=== PATIENT | female | born 1995 | race African-American/Black ===

== ENCOUNTER 2016-07-07 23:29 | Emergency (ER) | payer MEDICAID ==
[~2016-07-07] VITALS: Ht 165.1 cm; Wt 61.0 kg
[~2016-07-07 23:29] MED LIST: IBUP-232 PO; ORTH0.35 PO; PREN1CAP17; SENN1TAB PO
[2016-07-07 23:35] VITALS: BP 138/89; PULSE 85; RESP 16; TEMP 98; O2SAT 98
== END 2016-07-08 02:24 | disposition left against medical advice (07) ==
LOC: NED 23:29
DX: R68.89 Other general symptoms and signs (principal)
CPT/HCPCS: 99281

== ENCOUNTER 2016-07-10 21:56 | Emergency (ER) | payer MEDICAID ==
[~2016-07-10] VITALS: Ht 165.1 cm; Wt 62.0 kg
[2016-07-10 21:58] VITALS: BP 127/95; PULSE 81; RESP 16; TEMP 98; O2SAT 97
--- NOTE | 2016-07-10 23:18 | PD ---
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 Denies any fever, chest pain, sob, n/v , abdominal pain, dysuria, hematuria or vaginal bleeding. Pt states she use left over metronidazole 1 time 3 days ago. PFSH Past Medical History Anemia: Yes Bipolar Disorder: Yes Depression: Yes Developmental Delay: No Diminished Hearing: No Immunizations Current: Yes ?: Not LMP: 06/16/16 : 3 Para: 1 Miscarriage: 1 Past Surgical History Section: Yes (x1) Social History Alcohol Use: No Tobacco Use: No Substance Use: No Allergies-Medications (Allergen,Severity, Reaction): Coded Allergies: Mushroom (Verified Allergy, Severe, ANAPHYLAXIS, 07/10/16) Shrimp (Verified Allergy, Severe, ANAPHYLAXIS, 07/10/16) Uncoded Allergies: COCKTAIL SAUCE (Allergy, Severe, ANAPHYLAXIS, 03/30/16) Reported Meds & Prescriptions Reported Meds & Active Scripts Active Ortho Micronor-35 (Norethindrone) 0.35 Mg Tab 1 Tab PO DAILY Senna Plus 8.6-50 mg (Sennosides-Docusate Sodium) 1 Tab Tab 2 Tab PO Q12H PRN Ibuprofen 600 Mg Tab 600 Mg PO Q6H PRN Reported Prenate Pixie 10-0.6-0.4-200 mg ( W/O A W/ Fe Asparto G) 1 Cap Cap Review of Systems Except as stated in HPI: all other systems reviewed are Neg Physical Exam Narrative GENERAL: 20yo F not in distress. SKIN: Warm and dry. HEAD: Atraumatic. Normocephalic. CARDIOVASCULAR: Regular rate and rhythm. No murmur appreciated. RESPIRATORY: No accessory muscle use. Clear to auscultation. Breath sounds equal bilaterally. GASTROINTESTINAL: Abdomen soft, non-tender, nondistended. No rebound tenderness or guarding. PELVIC: +White thick vaginal discharge. No blood. No CMT or adnexal tenderness bilaterally. MUSCULOSKELETAL: No obvious deformities. No clubbing. No cyanosis. No edema. NEUROLOGICAL: Awake and alert. No obvious cranial nerve deficits. Motor grossly within normal limits. Normal speech. PSYCHIATRIC: Appropriate mood and affect; insight and judgment normal. Data Data Last Documented VS Vital Signs Date Time Temp Pulse Resp B/P Pulse Ox O2 Delivery O2 Flow Rate FiO2 07/10/16 23:06 18 07/10/16 21:58 98.0 81 127/95 97 Room Air Orders Gc And Chlamydia Pcr (07/10/16 23:15) Wet Prep Profile (07/10/16 23:15) Ed Urine Pregnancytest Poc (07/10/16 23:15) Labs Laboratory Tests Test 07/10/16 23:30 Clue Cells (Wet Prep) NONE SEEN Vaginal Trichomonas (Wet Prep) NONE SEEN Vaginal Yeast (Wet Prep) PRESENT MDM Medical Decision Making Medical Screen Exam Complete: Yes Emergency Medical Condition: Yes Differential Diagnosis Vaginal candidiasis vs. bacterial vaginosis vs. trichomoniasis vs. GC/chlamydia Narrative Course 20yo F with white vaginal discharge and itching in vagina for 3 days. Pt's pelvic exam is consistent with candidiasis. Wet prep showed vaginal yeast present. No clue cells or trichomonas. Pt has no abdominal pain and no urinary complaints. Urine negative. Will treat with fluconazole 150mg PO x1 here for uncomplicated vulvovaginal candidiasis. Return precautions given. Diagnosis Primary Impression: Vulvovaginal candidiasis Patient Instructions: General Instructions Departure Forms: Tests/Procedures Additional Instructions: Please follow up with your OBGYN in 3-7 days. Return to the ED if symptoms worsen. Med/Other Pt SpecificInfo: No Change to Meds Disposition: 01 DISCHARGE HOME Condition: Stable Lizz Sullivan Jul 10, 2016 23:18
[2016-07-11] MEDS ORDERED: FLUCONAZOLE 100 MG TAB PO ONE (00:30)
[2016-07-11 01:15] LABS: CHLAMYDIA PCR NOT DETECTED (NOT DETECT); NEISSERIA PCR NOT DETECTED (NOT DETECT)
== END 2016-07-11 00:47 | disposition home or self-care (01) ==
LOC: NEPA 21:56
DX: B37.3 Candidiasis of vulva and vagina (principal); Z86.2 Personal history of diseases of the blood and blood-forming organs and certain disorders involving the immune mechanism; Z86.59 Personal history of other mental and behavioral disorders
CPT/HCPCS: 84703; 87210; 87491; 87591; 99283

== ENCOUNTER 2017-03-12 10:01 | Emergency (ER) | payer MEDICAID, OTHER ==
[~2017-03-12] VITALS: Ht 165.1 cm; Wt 57.0 kg
[~2017-03-12 10:01] MED LIST changes: -IBUP-232 PO; -ORTH0.35 PO; +PENI500T PO; -SENN1TAB PO; +TRAM50TA PO
[2017-03-12 10:03] VITALS: BP 126/90; PULSE 77; RESP 12; TEMP 98.2; O2SAT 99
--- NOTE | 2017-03-12 11:15 | PD ---
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 Said normally she has 5 days of menstrual period but this month it is about 10 days. Denies any fever, chest pain, sob, n/v, abdominal pain, vaginal discharge, focal weakness or numbness. PFSH Past Medical History Anemia: Yes Bipolar Disorder: Yes Depression: Yes Developmental Delay: No Diminished Hearing: No Immunizations Current: Yes ?: Not LMP: 02/22/17 : 3 Para: 2 Miscarriage: 1 Past Surgical History Section: Yes Social History Alcohol Use: No Tobacco Use: No Substance Use: Yes (MJ) Allergies-Medications (Allergen,Severity, Reaction): Coded Allergies: mushroom (Unverified Allergy, Severe, ANAPHYLAXIS, 03/12/17) shrimp (Unverified Allergy, Severe, ANAPHYLAXIS, 03/12/17) Uncoded Allergies: COCKTAIL SAUCE (Allergy, Severe, ANAPHYLAXIS, 03/30/16) Reported Meds & Prescriptions Reported Meds & Active Scripts Active Tramadol (Tramadol HCl) 50 Mg Tab 50 Mg PO Q6H PRN Penicillin V Potassium 500 Mg Tab 500 Mg PO Q6H 7 Days Reported Prenate Pixie 10-0.6-0.4-200 mg ( W/O A W/ Fe Asparto G) 1 Cap Cap Review of Systems Except as stated in HPI: all other systems reviewed are Neg Physical Exam Narrative GENERAL: 21yo F not in distress. SKIN: Focused skin assessment warm/dry. HEAD: Atraumatic. Normocephalic. CARDIOVASCULAR: Regular rate and rhythm. No murmur appreciated. RESPIRATORY: No accessory muscle use. Clear to auscultation. Breath sounds equal bilaterally. GASTROINTESTINAL: Abdomen soft, non-tender, nondistended. PELVIC: Small amount of blood. Mucous. No CMT or adnexal tenderness bilaterally. MUSCULOSKELETAL: No obvious deformities. No clubbing. No cyanosis. No edema. NEUROLOGICAL: Awake and alert. No obvious cranial nerve deficits. Motor grossly within normal limits. Normal speech. PSYCHIATRIC: Appropriate mood and affect; insight and judgment normal. Data Data Last Documented VS Vital Signs Date Time Temp Pulse Resp B/P (MAP) Pulse Ox O2 Delivery O2 Flow Rate FiO2 03/12/17 13:29 03/12/17 11:16 18 03/12/17 10:03 98.2 77 99 Orders Orders Complete Blood Count With Diff (03/12/17 11:11) Ed Urine Pregnancytest Poc (03/12/17 13:16) Ed Discharge Order (03/12/17 13:20) Labs Laboratory Tests Test 03/12/17 11:33 White Blood Count 5.8 TH/MM3 Red Blood Count 4.13 MIL/MM3 Hemoglobin 12.6 GM/DL Hematocrit 36.3 % Mean Corpuscular Volume 87.8 FL Mean Corpuscular Hemoglobin 30.5 PG Mean Corpuscular Hemoglobin Concent 34.7 % Red Cell Distribution Width 14.1 % Platelet Count 250 TH/MM3 Mean Platelet Volume 9.2 FL Neutrophils (%) (Auto) 43.9 % Lymphocytes (%) (Auto) 48.1 % Monocytes (%) (Auto) 5.8 % Eosinophils (%) (Auto) 1.6 % Basophils (%) (Auto) 0.6 % Neutrophils # (Auto) 2.6 TH/MM3 Lymphocytes # (Auto) 2.8 TH/MM3 Monocytes # (Auto) 0.3 TH/MM3 Eosinophils # (Auto) 0.1 TH/MM3 Basophils # (Auto) 0.0 TH/MM3 CBC Comment DIFF FINAL Differential Comment MDM Medical Decision Making Medical Screen Exam Complete: Yes Emergency Medical Condition: Yes Differential Diagnosis Metromenorrhagia vs. abnormal uterine bleeding Narrative Course 21yo F with abnormal uterine bleeding. Pt is well appearing and not in distress. No abdominal pain, vomiting or nausea. Vital signs normal. H/H normal at 12.6/36.3. Urine negative. Pt to follow up with SU[facility]. Return precautions given. Diagnosis Primary Impression: Abnormal uterine bleeding Patient Instructions: General Instructions Departure Forms: Tests/Procedures Additional Instructions: Please follow up with your SU[facility] in 2-3 days. Return to the ED if symptoms worsen. Med/Other Pt SpecificInfo: No Change to Meds Disposition: 01 DISCHARGE HOME Condition: Stable Lizz Sullivan DO Mar 12, 2017 11:15
[2017-03-12 11:47] LABS: AUTOMATED NEUTROPHIL # 2.6 TH/MM3 (1.8-7.7); BASOPHIL % 0.6 % (0.0-2.0); EOSINOPHIL # 0.1 TH/MM3 (0-0.4); EOSINOPHIL % 1.6 % (0.0-4.0); HEMATOCRIT 36.3 % (35.0-46.0); HEMO FLAGS DIFF FINAL; LYMPH % 48.1 % (9.0-44.0); LYMPHOCYTE # 2.8 TH/MM3 (1.0-4.8); MEAN CELL VOLUME 87.8 FL (80.0-100.0); MEAN CORPUSCULAR HEMOGLOBIN 30.5 PG (27.0-34.0); MEAN CORPUSCULAR HGB CONC 34.7 % (32.0-36.0); MONO % 5.8 % (0.0-8.0); NEUT % 43.9 % (16.0-70.0); PLATELET COUNT 250 TH/MM3 (150-450); RED BLOOD COUNT 4.13 MIL/MM3 (4.00-5.30); RED CELL DISTRIBUTION WIDTH 14.1 % (11.6-17.2); WHITE BLOOD COUNT 5.8 TH/MM3 (4.0-11.0)
== END 2017-03-12 13:29 | disposition home or self-care (01) ==
LOC: NEPD 10:01
DX: N92.5 Other specified irregular menstruation (principal)
CPT/HCPCS: 84703; 85025; 99284

== ENCOUNTER 2017-10-07 16:05 | Emergency (ER) | payer MEDICAID ==
[~2017-10-07] VITALS: Ht 165.1 cm; Wt 60.0 kg
[2017-10-07 16:15] VITALS: BP 121/77; PULSE 70; RESP 16; TEMP 98.9; O2SAT 100
--- NOTE | 2017-10-07 16:33 | PD ---
HPI Chief Complaint: Oral / Dental Pain or Problem Time Seen by Provider: 16:26 Travel History International Travel<30 days: No Contact w/Intl Traveler<30days: No Traveled to known affect area: No History of Present Illness HPI 21-year-old female with no significant medical history presents emergency department for evaluation of left mandibular first molar pain. Patient states this started today. She has history of cavity in that tooth, however today after attempting to put a temporary filling on it, she believes she may have gotten some food in it, which has exacerbated the pain. She denies any fever chills. No new trauma. Pain is a 10 out of 10, constant, throbbing. She has no other symptoms to report at this time. PFSH Past Medical History Anemia: Yes Bipolar Disorder: Yes Depression: Yes Developmental Delay: No Diminished Hearing: No Immunizations Current: Yes ?: Not LMP: AUGUST 2017 : 3 Para: 2 Miscarriage: 1 Past Surgical History Section: Yes Social History Alcohol Use: No Tobacco Use: No Substance Use: Yes (MJ) Allergies-Medications (Allergen,Severity, Reaction): Coded Allergies: mushroom (Unverified Allergy, Severe, ANAPHYLAXIS, 03/12/17) shrimp (Unverified Allergy, Severe, ANAPHYLAXIS, 03/12/17) Uncoded Allergies: COCKTAIL SAUCE (Allergy, Severe, ANAPHYLAXIS, 03/30/16) Reported Meds & Prescriptions Reported Meds & Active Scripts Active Ultram (Tramadol HCl) 50 Mg Tab 50 Mg PO Q8H PRN Ibuprofen 600 Mg Tab 600 Mg PO Q8HR PRN Peridex Liq (Chlorhexidine Gluconate (Mouth) Liq) 0.12% Soln 15 Ml SWISH-SPIT BID Penicillin V Potassium 500 Mg Tab 500 Mg PO Q6H 10 Days Tramadol (Tramadol HCl) 50 Mg Tab 50 Mg PO Q6H PRN Penicillin V Potassium 500 Mg Tab 500 Mg PO Q6H 7 Days Reported Prenate Pixie 10-0.6-0.4-200 mg ( W/O A W/ Fe Asparto G) 1 Cap Cap Review of Systems Except as stated in HPI: all other systems reviewed are Neg Physical Exam Narrative GENERAL: Well-nourished, well-developed female patient, tearful in no acute distress SKIN: Focused skin assessment warm/dry. HEAD: Normocephalic. Without erythema or edema EYES: No scleral icterus. No injection or drainage. DENTAL: No loose or chipped teeth. Patient has multiple dental caries along the mandibular molars. The left first molar has a large dental carry, with filling missing. Mild gingival erythema. No significant edema. No appreciable abscess. No malocclusion. NECK: Supple, trachea midline. No JVD or lymphadenopathy. CARDIOVASCULAR: Regular rate and rhythm without murmurs, gallops, or rubs. RESPIRATORY: Breath sounds equal bilaterally. No accessory muscle use. Data Data Last Documented VS Vital Signs Date Time Temp Pulse Resp B/P (MAP) Pulse Ox O2 Delivery O2 Flow Rate FiO2 10/07/17 16:15 98.9 70 16 121/77 (92) 100 Orders Orders Ibuprofen (Motrin) (10/07/17 16:45) Ed Discharge Order (10/07/17 16:42) MDM Medical Decision Making Medical Screen Exam Complete: Yes Emergency Medical Condition: Yes Medical Record Reviewed: Yes Differential Diagnosis Dental caries versus pulpitis versus gingivitis versus periodontal disease Narrative Course 21-year-old female presents emergency department for evaluation of dental pain. Patient has a large dental caries mild gingival erythema. Patient will be provided pain control and oral antibiotics. I have encouraged him to follow- up. She agrees to return immediately with acute worsening symptoms. Diagnosis Primary Impression: Dentalgia Additional Impression: Dental caries Referrals: Dentist Patient Instructions: Dental Caries (ED), General Instructions Additional Instructions: Seek dental evaluation Follow-up with a primary care provider Return immediately with acute worsening symptoms Med/Other Pt SpecificInfo: Prescription(s) given Scripts Tramadol (Ultram) 50 Mg Tab 50 MG PO Q8H Y for PAIN GREATER THAN 8, #12 TAB 0 Refills Prov: Amanda Scott 10/07/17 Ibuprofen (Ibuprofen) 600 Mg Tab 600 MG PO Q8HR Y for PAIN, #30 TAB 0 Refills Prov: Amanda Scott 10/07/17 Chlorhexidine Gluconate (Mouth) Liq (Peridex Liq) 0.12% Soln 15 ML SWISH-SPIT BID, #473 ML 0 Refills Prov: Amanda Scott 10/07/17 Penicillin V Potassium (Penicillin V Potassium) 500 Mg Tab 500 MG PO Q6H for Infection for 10 Days, #40 TAB 0 Refills Prov: Amanda Scott 10/07/17 Disposition: 01 DISCHARGE HOME Condition: Stable Amanda Scott Oct 07, 2017 16:33
[2017-10-07] MEDS ORDERED: PENI500T PO (16:44)
[2017-10-07] MEDS ORDERED: PERI0.126 SWISH-SPIT (16:44)
[2017-10-07] MEDS ORDERED: TRAM50 PO (16:44)
[2017-10-07] MEDS ORDERED: IBUP-232 PO (16:44)
[2017-10-07] MEDS ORDERED: IBUPROFEN 600 MG TAB PO ONE (16:45)
== END 2017-10-07 16:54 | disposition home or self-care (01) ==
LOC: NEPD 16:05
DX: K08.89 Other specified disorders of teeth and supporting structures (principal); K02.9 Dental caries, unspecified; Z86.59 Personal history of other mental and behavioral disorders
CPT/HCPCS: 99283